=== PATIENT | female | born 1990 | race Caucasian/White ===

== ENCOUNTER 2020-01-09 17:45 | Emergency (ER) | payer MEDICAID ==
[~2020-01-09] VITALS: Ht 165.1 cm; Wt 80.0 kg
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
--- NOTE | 2020-01-09 20:28 | NUR ---
Officer #[id number] with [facility] phoned and reports they are not coming to the ED to take further report and she is cleared for discharge.
[2020-01-09 20:32] VITALS: BP 115/69
== END 2020-01-09 20:34 | disposition home or self-care (01) ==
LOC: ER 17:46
DX: S20.211A Contusion of right front wall of thorax, initial encounter (principal); S00.411A Abrasion of right ear, initial encounter; S40.211A Abrasion of right shoulder, initial encounter; S20.411A Abrasion of right back wall of thorax, initial encounter; R07.81 Pleurodynia; M54.2 Cervicalgia; M54.9 Dorsalgia, unspecified; Z72.89 Other problems related to lifestyle; Z88.0 Allergy status to penicillin; Y09 Assault by unspecified means
CPT/HCPCS: 71045; 99283

== ENCOUNTER 2020-06-25 08:24 | Emergency (ER) | payer MEDICAID, OTHER ==
[~2020-06-25] VITALS: Ht 160 cm; Wt 67.7 kg
[2020-06-25] MEDS ORDERED: HYDROcodone/acetaminophen 10/325mg tab PO ONE (08:45)
[2020-06-25] MEDS ORDERED: ibuprofen tablet 400 MG TABLET PO ONE (09:20)
[2020-06-25] MEDS ORDERED: LIDOcaine 1% W/epiNEPHrine 1:100,000 20ml vial SQ ONE (10:10)
[2020-06-25] MEDS ORDERED: ceFAZolin 1GM/D5W- ADD-VANTAGE 50 ML IV ONE (10:10)
[2020-06-25] MEDS ORDERED: CEPH500C5 PO (12:23)
[2020-06-25 12:45] VITALS: BP 140/94
== END 2020-06-25 12:52 | disposition home or self-care (01) ==
LOC: EEVIPCON 08:24 → ER 08:24
DX: S82.201A Unspecified fracture of shaft of right tibia, initial encounter for closed fracture (principal); S81.811A Laceration without foreign body, right lower leg, initial encounter; S80.12XA Contusion of left lower leg, initial encounter; Z72.89 Other problems related to lifestyle; Z88.0 Allergy status to penicillin; Z79.899 Other long term (current) drug therapy; X58.XXXA Exposure to other specified factors, initial encounter; Y93.89 Activity, other specified; Y92.89 Other specified places as the place of occurrence of the external cause; Y99.8 Other external cause status
CPT/HCPCS: 12001; 29515; 73564; 73590; 73630; 96365; 99284; J0690

== ENCOUNTER 2022-07-13 21:38 | Emergency (ER) | payer MEDICAID, OTHER ==
[~2022-07-13] VITALS: Ht 167.6 cm; Wt 70.5 kg
[2022-07-13 21:52] VITALS: BP 135/103
[2022-07-13] MEDS ORDERED: PERM60CR19 TP (23:52)
[2022-07-13 23:56] LABS: CLARITY,URINE CLOUDY (Clear); COLOR,URINE YELLOW (Yellow); GLUCOSE, URINE NEGATIVE (Neg); KETONES,URINE 40 mg/dl (Neg); LEUKOCYTE ESTERASE ,URINE SMALL (Neg); NITRITES, URINE NEGATIVE (Neg); OCCULT BLOOD,URINE SMALL (Neg); PH,URINE 5.5 (4.8-8.0); PROTEIN,URINE TRACE mg/dl (Neg); UROBILINOGEN,URINE 0.2 E.U/dL (0.2-1.0)
[2022-07-13 23:57] LABS: UA COLLECTION TYPE CLN CATCH MIDSTREAM
[2022-07-14 00:08] LABS: CAL OXALATE CRYSTALS 1+ /HPF (NEGATIVE); MUCUS STRANDS MODERATE /LPF (Neg); SQUAMOUS EPITHELIAL CELL,UR FEW /LPF (FEW)
[2022-07-14 00:09] LABS: RBC,URINE 0-2 /HPF (0-2); WBC,URINE 50-100 /HPF (0-4)
[2022-07-14 00:11] LABS: BACTERIA,URINE NONE SEEN /HPF (Neg); TRANSITIONAL EPI CELLS,URINE FEW /HPF
[2022-07-14] MEDS ORDERED: SULF1TAB45 PO (00:13)
--- NOTE | 2022-07-14 00:44 | NUR ---
DISCHARGE INTERVENTION ONLY
== END 2022-07-14 00:44 | disposition home or self-care (01) ==
LOC: ER 21:39
DX: N39.0 Urinary tract infection, site not specified (principal); F15.10 Other stimulant abuse, uncomplicated
CPT/HCPCS: 81001; 87088; 99283

== ENCOUNTER 2022-10-20 18:25 | Emergency (ER) | payer MEDICAID ==
[~2022-10-20] VITALS: Ht 167.6 cm; Wt 53.2 kg
[~2022-10-20 18:25] MED LIST: PERM60CR19 TP
[2022-10-20 18:36] VITALS: BP 140/91
== END 2022-10-20 20:07 | disposition left against medical advice (07) ==
LOC: ER 18:26
DX: Z00.8 Encounter for other general examination (principal); Z53.21 Procedure and treatment not carried out due to patient leaving prior to being seen by health care provider